=== PATIENT | male | born 1970 | race Caucasian/White ===

== ENCOUNTER 2022-12-27 08:48 | Outpatient (AMB) | payer OTHER, SELFPAY ==
[2022-12-27 08:58] VITALS: BP 124/70; PULSE 72; O2SAT 96; BMI 26.5
--- NOTE | 2022-12-27 08:58 | A.OFFPC_ITS ---
Vital Signs 12/27/22 08:58 Height 5 ft 8 in Weight 174 lb BMI 26.5 BP 124/70 Blood Pressure Location Lt brachial Position Sitting Pulse 72 Pulse Source Pulse Oximeter Pulse Oximetry (%) 96 Oxygen Delivery Method Room Air Intake Visit Reasons: Re establish care Allergies No Known Allergies Allergy (Verified 12/27/22 09:15) Medication List - Last Reconciled 12/27/22 by Julio Poon MD No Known Home Meds Tobacco use date assessed: 12/27/22 Dental Screening Dental Screen Date: 12/27/22 Did you have a dental visit in the last 12 months?: Yes Did you have a dental problem in the last 6 months where you did not have access to dental care?: No Was dental information given to patient?: Patient has dentist HPI Re establish care HPI Details Patient comes in today for his annual physical examination and to reestablish care - was last seen here in 2018 Patient states that he feels okay He denies any headaches or dizziness Denies any chest pains, no SOB No nausea/vomiting, no abdominal pain No change in bowel habits noted Denies any acute urinary symptoms States that he gets Rx for Metronidazole topical gel from his therapist rrt ([facility]) previously and would like to get this refilled today if possible He has never had a screening colonoscopy done in the past [facility] Medical History (Updated 12/27/22 @ 09:49 by Julio Poon MD) Overweight (BMI 25.0-29.9) Smoker Rosacea Alcohol abuse Anxiety Depression Surgical History (Updated 12/27/22 @ 09:39 by Julio Poon MD) Hx of local excision of skin lesion Family History Mother No problems noted. Father Cancer Brother No problems noted. Brother No problems noted. Sister No problems noted. Daughter No problems noted. Daughter No problems noted. Other Mental health disorder Substance use disorder Social History (Updated 12/27/22 @ 09:30 by Julio Poon MD) Housing: Other (mobile home) Patient Tobacco Use Status: Current everyday Tobacco user Tobacco use type: Cigarette Cigarette Packs Per Day: 1 Cigarettes Per Day: 20 e-Cigarette/Vaping Use: Never Used Second Hand Smoke Exposure: Yes Substance Use Type: Marijuana service: No Current occupational status: employed Current occupational exposures/hazards: No Cognitive needs: No Hearing needs: No Vision needs: Yes Questionnaire PHQ-9 Over the last 2 weeks, how often have you been bothered by any of the following problems? 1. Little interest or pleasure in doing things: more than half the days 2. Feeling down, depressed, or hopeless: nearly every day 3. Trouble falling or staying asleep, or sleeping too much: more than half the days 4. Feeling tired or having little energy: not at all 5. Poor appetite or overeating: not at all 6. Feeling bad about yourself - or that you are a failure or have let yourself or your family down: more than half the days 7. Trouble concentrating on things, such as reading the newspaper or watching television: not at all 8. Moving or speaking so slowly that other people could have noticed. Or the opposite - being so fidgety or restless that you have been moving around a lot more than usual: several days 9. Thoughts that you would be better off or of hurting yourself in some way: several days Total score: 11 Depression Screening Interpretation: Positive Depression Screening Follow-up: Existing condition and Declines treatment Depression Screening Done: Yes 73473 - PHQ-9 Billing: Yes Source: Developed by Drs. Rigo Villatoro, Sarita Bansal, Bubba Singh and colleagues, with an educational kurt from [employer]. Thrive Questionnaire Date Thrive assessed: 12/27/22 I am a: Patient What is your living situation today?: I have a steady place to live Within the past 12 months, did the food you bought not last and you didn't have the money to get more?: Never true Within the past 12 months, did you worry whether your food would run out before you got money to buy more?: Never true Do you have trouble paying for medicines?: No Do you have trouble getting transportation to medical appointments?: No Do you have trouble paying your heating and electricity bill?: No Do you have trouble taking care of your child, family member or friend?: No Do you have trouble with day-to-day activities such as bathing, preparing meals, shopping, managing finances, etc.?: No Are you currently unemployed and looking for a job?: No Are you interested in more education?: No Currently or been in a relationship where the following occur: no concerns reported AUDIT C Alcohol Use Questionnaire (AUDIT-C) 1. How often do you have a drink containing alcohol?: 4 or more times a week 2. How many drinks containing alcohol do you have on a typical day when you are drinking?: 5 or 6 3. How often do you have six or more drinks on one occasion?: Daily or almost daily Total Score: 10 Score Reviewed/Action Taken: Yes YAHIR-7 AMB Questionnaire YAHIR-7 Date YAHIR - 7 assessed: 12/27/22 Feeling nervous, anxious, or on edge: 1 = Several days Not being able to stop or control worryin = Nearly every day Worrying too much about different things: 3 = Nearly every day Trouble relaxin = Nearly every day Being so restless that it is hard to sit still: 0 = Not at all Becoming easily annoyed or irritable: 1 = Several days Feeling afraid as if something awful might happen: 3 = Nearly every day Total YAHIR-7 score (0-4 normal; 5-9 mild; 10-14 moderate; 15-21 severe): 14 Source: Developed by Drs. Rigo Villatoro, Sarita Bansal, Bubba Singh and colleagues, with an educational kurt from [employer]. Review of Systems Const Denies chills, Reports difficulty sleeping (feels like his brain won't shut down to let him sleep), Denies fatigue, Denies fever(s), Denies headache(s), Denies malaise and Denies weakness Eyes Denies blurry vision, Denies change in vision, Denies irritation and Denies itchy eyes ENT Denies dysphagia, Denies dizziness, Denies otalgia, Denies headache(s), Denies nasal congestion, Denies neck pain, Denies odynophagia and Denies sore throat Card Denies chest pain, Denies rapid heart rate, Denies irregular heart rhythm, Denies palpitations and Denies dyspnea Resp Denies chest congestion, Denies cough, Denies dyspnea and Denies wheezing GI Denies abdominal pain, Denies bloating, Denies constipation, Denies dysphagia, Denies heartburn, Denies diarrhea, Denies nausea, Denies odynophagia and Denies vomiting Denies hematuria, Denies difficulty urinating (but notes slightly weaker urinary stream than usual lately), Denies dysuria, Denies urinary frequency and Denies urinary urgency Musc Denies back pain, Reports arthralgias (on and off, involving multiple joints), Denies joint swelling, Denies muscle weakness and Denies neck pain Skin/Breast Denies change in pigmentation, Denies lesions, Denies rash and Denies unusual bruising Neuro Denies dizziness, Denies headache(s), Denies paresthesias and Denies weakness Psych Reports anxiety and Reports depression Endo Denies fatigue and Denies palpitations Kale/Lymph Denies easy bruising Aller/Immun Denies itchy eyes and Denies wheezing Physical exam (Primary Care) Vital Signs: Last Vital Signs Pulse 72 12/27/22 08:58 BP 124/70 12/27/22 08:58 Pulse Ox 96 12/27/22 08:58 Oxygen Delivery Method Room Air 12/27/22 08:58 BMI result Body Mass Index 26.5 Tobacco/Smoking Status: Tobacco use Status Tobacco use date assessed 12/27/22 12/27/22 09:07 Patient Tobacco Use Status Current everyday Tobacco 12/27/22 09:07 Tobacco use type Cigarette 12/27/22 09:07 e-Cigarette/Vaping Use Never Used 12/27/22 09:07 PHQ-9: PHQ-9 Score PHQ-9: Total score 11 12/27/22 09:07 Depression Screening Interpretation: Positive Depression Screening Follow-up: Existing condition and Declines treatment Thrive Assessment: Date of Thrive Assessment Date Thrive assessed 12/27/22 12/27/22 09:07 Currently or been in a relationship where the following occur: no concerns reported Const General: no acute distress, alert and awake Orientation/consciousness: patient oriented x3 HENMT Head: Yes normocephalic and Yes atraumatic Ears: external ears normal, TM's normal bilaterally and EAC's normal General nose exam: No nasal discharge present Face and sinus: Yes normal facial exam and Yes sinuses nontender Teeth and gingiva: dentition normal Throat: Yes posterior oropharynx normal and Yes tonsils normal (no TP congestion) Eyes Eyelids: Yes eyelids normal Conjunctivae: conjunctivae normal Pupils: Equal, round and reactive pupils present EOM: EOMs intact bilaterally Neck Neck: Yes no lymphadenopathy and Yes supple Thyroid: Thyroid normal Resp Auscultation: clear to auscultation bilaterally, no rales and no wheezes Cardio Rate: regular rate Rhythm: regular rhythm Heart sounds: no murmurs GI Palpation (GI): Soft to palpation, nontender and No hepatosplenomegaly present Auscultation: normal bowel sounds General: Yes no CVA tenderness Back/Spine/Pelvis Back: no CVA tenderness Thoracic/Lumbar Spine: thoracic and lumbar spine normal to inspection Skin Lesions: no lesions Rashes: no rashes Neuro General: patient oriented x3, moves all extremities, no focal motor deficits and CN's II-XI intact bilaterally Cranial nerves: Yes Equal, round and reactive pupils present Cognition (Neuro): normal cognition Gait exam (Neuro): Normal gait present Extrem General: Yes no clubbing, cyanosis or edema Assessment and Plan Assessment & Plan (1) Annual physical exam: Code(s): Z00.00 - Encounter for general adult medical examination without abnormal findings Plan: Check labs (2) Rosacea: Code(s): L71.9 - Rosacea, unspecified Plan: Continue Metronidazole 0.75% topical gel QD PRN - Rx refilled, per request Follow up with [facility] as scheduled (3) Alcohol abuse: Code(s): F10.10 - Alcohol abuse, uncomplicated Plan: Counseled on at least trying to cut back on his alcohol intake - it appears that patient has been drinking to help alleviate some of his symptoms of anxiety and depression over the years Will send him for some additional labs, including his LFTs, serum magnesium level, B1, B6 and B12 levels for further evaluation (4) Anxiety: Code(s): F41.9 - Anxiety disorder, unspecified Plan: Patient used to take Escitalopram in the past but declined offer to start him back on Rx at this time It appears that he has been using alcohol (drinking) as well as smoking marijuana to help control or alleviate some of his symptoms of anxiety and depression over the years (5) Depression: Code(s): F32.A - Depression, unspecified Qualifiers: Depression Type: major depressive disorder Major depression recurrence: recurrent Active/Remission status: currently active Major depression episode severity: unspecified Qualified Code(s): F33.9 - Major depressive disorder, recurrent, unspecified Plan: Patient used to take Escitalopram and Mirtazapine in the past but declined offer to start him back on Rx at this time He also declined offer to refer him to psychiatry Is advised that he can call for referral at any time if he changes his mind about this or about starting on medications (6) Smoker: Code(s): F17.200 - Nicotine dependence, unspecified, uncomplicated Plan: Counseled on smoking cessation, bith for cigarettes and marijuana (7) Overweight (BMI 25.0-29.9): Code(s): E66.3 - Overweight Plan: Reinforced diet/exercise as tolerated/lose weight (8) Colon cancer screening: Code(s): Z12.11 - Encounter for screening for malignant neoplasm of colon Plan: Will refer him to GI for screening colonoscopy - he has never had one done in the past Plan Follow up in 6 months Orders: Orders Lipid Panel Today E78.00 - Pure hypercholesterolemia, unspecified, Z00.00 - Encounter for general adult medical examination without abnormal findings TSH reflex Free T4 Today E78.00 - Pure hypercholesterolemia, unspecified, L71.9 - Rosacea, unspecified, Z00.00 - Encounter for general adult medical examination without abnormal findings Complete Blood Count Auto Diff Today F17.200 - Nicotine dependence, unspecified, uncomplicated, L71.9 - Rosacea, unspecified, Z00.00 - Encounter for general adult medical examination without abnormal findings Comprehensive [place]. Panel Fast Today F17.200 - Nicotine dependence, unspecified, uncomplicated, L71.9 - Rosacea, unspecified, Z00.00 - Encounter for general adult medical examination without abnormal findings UA CC w/rflx Micro + Cult Today R30.0 - Dysuria, Z00.00 - Encounter for general adult medical examination without abnormal findings Prostate Specific Antigen Scr Today Z00.00 - Encounter for general adult medical examination without abnormal findings Vitamin D 25-OH Total Today E55.9 - Vitamin D deficiency, unspecified, Z00.00 - Encounter for general adult medical examination without abnormal findings Vitamin B12 and Folate Today E53.8 - Deficiency of other specified B group vitamins, F10.20 - Alcohol dependence, uncomplicated, Z00.00 - Encounter for general adult medical examination without abnormal findings Hemoglobin A1c Today R73.9 - Hyperglycemia, unspecified, Z00.00 - Encounter for general adult medical examination without abnormal findings Magnesium Today E83.42 - Hypomagnesemia, F10.20 - Alcohol dependence, uncomplicated Vitamin B6 Today F10.20 - Alcohol dependence, uncomplicated Vitamin B1 Today F10.20 - Alcohol dependence, uncomplicated Referrals Gastroenterology Referral Z12.11 - Encounter for screening for malignant neoplasm of colon Medications: New metronidazole 0.75% 1 appl topical DAILY 45 grams 2RF L71.9 - Rosacea, unspecified Coding Level of Care Code New Pt Prev Care 40-64y(96506) Diagnoses Annual physical exam Z00.00 Rosacea L71.9 Alcohol abuse F10.10 Anxiety F41.9 Episode of recurrent major depressive disorder, unspecified depression episode severity F33.9 Depression Type: major depressive disorder Major depression recurrence: recurrent Active/Remission status: currently active Major depression episode severity: unspecified Smoker F17.200 Overweight (BMI 25.0-29.9) E66.3 Colon cancer screening Z12.11
== END 2022-12-27 09:38 | disposition home or self-care (01) ==
PROVIDERS: PCP Internal Medicine; Visit Provider Internal Medicine
DX: Z00.00 Encounter for general adult medical examination without abnormal findings (principal); L71.9 Rosacea, unspecified; F10.10 Alcohol abuse, uncomplicated; F33.9 Major depressive disorder, recurrent, unspecified; F41.9 Anxiety disorder, unspecified; F17.210 Nicotine dependence, cigarettes, uncomplicated; E66.3 Overweight; Z12.11 Encounter for screening for malignant neoplasm of colon
CPT/HCPCS: 99386

== ENCOUNTER 2022-12-27 09:46 | Outpatient (REF) | payer OTHER, SELFPAY ==
[2022-12-27 10:13] LABS: MANUAL DIFF FLAG NO
[2022-12-27 10:52] LABS: Basophils Percent Auto 0.4 % (0-2); Eosinophils Absolute Auto 0.1 X10*3/uL (0.0-0.4); Eosinophils Percent Auto 1.2 % (0-4); Hematocrit 44.3 % (42.0-52.0); Hemoglobin 15.4 g/dl (14.0-18.0); Imm Gran Abs Auto 0.04 X10*3/uL (0.00-0.03); Imm Gran Pct Auto 0.4 % (0.0-0.4); Lymphocytes Absolute Auto 2.6 X10*3/uL (1.2-4.9); Mean Corpuscular HGB Conc 34.8 g/dl (31.0-36.0); Mean Corpuscular Hemoglobin 34.8 pg (27.0-33.0); Mean Corpuscular Volume 100.2 fL (80.0-98.0); Mean Platelet Volume 9.8 fL (9.4-12.4); Monocytes Absolute Auto 0.6 X10*3/uL (0.1-1.2); Monocytes Percent Auto 5.9 % (2-11); Neutrophils Absolute Auto 6.7 x10*3/uL (2.0-8.3); Neutrophils Percent Auto 66.1 % (45-73); Platelet Count 285 X10*3/uL (160-400); Red Blood Count 4.42 X10*6/uL (4.60-5.80); White Blood Count 10.1 X10*3/uL (4.8-10.8)
[2022-12-27 10:57] LABS: Estimated Average Glucose 103 mg/dL; Hemoglobin A1c % 5.2 % (<6.0)
[2022-12-27 11:29] LABS: Alanine Aminotransferase 28 U/L (0-40); Albumin Level 4.4 g/dL (3.5-5.0); Alkaline Phosphatase 104 U/L (39-117); Anion Gap 14 (12-20); Aspartate Amino Transferase 24 U/L (5-37); Bilirubin Total 0.3 mg/dL (0.0-1.0); Blood Urea Nitrogen 9 mg/dL (9-16); Calcium 9.6 mg/dL (8.4-10.2); Carbon Dioxide 27 mmol/L (22-29); Chloride 106 mmol/L (96-108); Cholesterol 170 mg/dL (<200); Estimated Glomerular Filt Rate > 60; Glucose Fasting 84 mg/dL (60-99); HDL Cholesterol 63 mg/dL (>40); LDL Cholesterol Calculated 86 mg/dL (<100); Magnesium 2.3 mg/dL (1.6-2.6); Potassium 3.9 mmol/L (3.3-5.1); Sodium 143 mmol/L (135-145); Total Protein 7.2 g/dL (6.5-8.0); Triglycerides 107 mg/dL (<150)
[2022-12-27 11:49] LABS: TSH reflex Free T4 1.08 uIU/mL (0.32-4.0); Vitamin D 25-OH Total 30.4 ng/mL (>30)
[2022-12-27 11:51] LABS: Folate 13.2 ng/mL (> or = 4.0); Prostate Specific Antigen Scr 1.57 ng/mL (<0.05-4.0); Vitamin B12 759 pg/mL (200-900)
[2022-12-27 12:09] LABS: Appearance Urine Clear; Color Urine Yellow; Glucose Urine UA Negative (Negative); Leukocyte Esterase Urine Negative (Negative); Nitrite Urine Negative (Negative); Urine Blood Negative (Negative); Urine Ketones Negative (Negative); Urine Protein Negative (Neg-Trace)
[2023-01-02 12:53] LABS: Vitamin B1 28 nmol/L (8-30)
[2023-01-06 15:48] LABS: Vitamin B6 35.6 ng/mL (2.1-21.7)
== END 2022-12-27 09:47 | disposition home or self-care (01) ==
LOC: HO.LAB 09:46
PROVIDERS: PCP Internal Medicine; Visit Provider Internal Medicine
DX: Z00.00 Encounter for general adult medical examination without abnormal findings (principal); Z12.5 Encounter for screening for malignant neoplasm of prostate; E78.00 Pure hypercholesterolemia, unspecified; F17.200 Nicotine dependence, unspecified, uncomplicated; L71.9 Rosacea, unspecified; E53.8 Deficiency of other specified B group vitamins; F10.20 Alcohol dependence, uncomplicated; R73.9 Hyperglycemia, unspecified; R30.0 Dysuria; E55.9 Vitamin D deficiency, unspecified
CPT/HCPCS: 36415; 80053; 80061; 81003; 82306; 82607; 82746; 83036; 83735; 84153; 84207; 84425; 84443; 85025

== ENCOUNTER 2023-01-31 13:01 | Outpatient (AMB) | payer OTHER, SELFPAY ==
[2023-01-31 13:06] VITALS: BP 135/73; PULSE 75
--- NOTE | 2023-01-31 13:06 | MHC.OFFVIS ---
Intake Vital Signs 01/31/23 13:06 Weight 178 lb 2.136 oz BP 135/73 Blood Pressure Location Lt brachial Position Sitting Pulse 75 Intake Visit Reasons: Colonoscopy screening Intake Note: Patient referred by Dr. Mancilla for colonoscopy screening. Patient denies constipation or diarrhea. 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 He has no known family history of GI cancers Bowels normal Appetite is good No cardiac or respiratory He does smoke, drinks alcohol, works full-time No nausea, vomiting, hematemesis, hematochezia fever chills PFSH Medical History Overweight (BMI 25.0-29.9) Smoker Rosacea Alcohol abuse Anxiety Depression Surgical History Hx of local excision of skin lesion Family History Mother No problems noted. Father Cancer Brother No problems noted. Brother No problems noted. Sister No problems noted. Daughter No problems noted. Daughter No problems noted. Other Mental health disorder Substance use disorder Social History Housing: Other (mobile home) Patient Tobacco Use Status: Current everyday Tobacco user Tobacco use type: Cigarette Cigarette Packs Per Day: 1 Cigarettes Per Day: 20 e-Cigarette/Vaping Use: Never Used Second Hand Smoke Exposure: Yes Substance Use Type: Marijuana service: No Current occupational status: employed Current occupational exposures/hazards: No Cognitive needs: No Hearing needs: No Vision needs: Yes Review of Systems Const All systems reviewed & are unremarkable except as noted in HPI and below Card Denies chest pain and Denies dyspnea Resp Denies dyspnea GI Denies abdominal pain, Denies change in bowel habits, Denies heartburn, Denies diarrhea and Denies nausea Physical Exam Vital Signs: Last Vital Signs Pulse 75 01/31/23 13:06 BP 135/73 01/31/23 13:06 Const General: cooperative, healthy appearing, comfortable and no acute distress Orientation/consciousness: patient oriented x3 Limitations: no limitations Eyes Conjunctivae: conjunctival abnormal (Conjunctiva injected bilaterally no drainage) Resp Effort & Inspection: normal respiratory effort and able to speak in complete sentences Auscultation: clear to auscultation bilaterally, no crackles and no rales Cardio Rate: regular rate Rhythm: regular rhythm Heart sounds: S1 normal heart sound present and S2 normal heart sound present GI Palpation (GI): Soft to palpation and nontender Auscultation: normal bowel sounds Skin General skin exam: no rashes or lesions noted Neuro General: patient oriented x3 Extrem General: Yes full ROM Psych Appearance: grossly normal Mental Status: mental status grossly normal Speech and movement: Normal speech and movement present and Clear speech present Affect: normal affect Attitude: cooperative Thought process: Normal thought process present Thought content: Normal thought content present Assessment & Plan Assessment & Plan (1) Colon cancer screening: Comment: No GI complaints, no known family history colon cancer Discussed procedure, rare risks, need for escorted due to anesthesia Code(s): Z12.11 - Encounter for screening for malignant neoplasm of colon Plan: index screening colonoscopy Plan index screen Orders: Orders Colonoscopy - GI Use Only 01/31/23 Z12.11 - Encounter for screening for malignant neoplasm of colon Medications: New bisacodyl (Dulcolax (bisacodyl)) Day before procedure, prep day Take 4 tablets by mouth upon awakening followed by large glass of water 20 mg (4 x 5 mg) PO ONCE 1 day 4 tabs 0RF colonoscopy prep Z12.11 - Encounter for screening for malignant neoplasm of colon polyethylene glycol 3350 (Miralax) Take as directed by mouth the day before your procedure. 238 grams PO ONCE 1 day PRN 238 grams 0RF laxative effect Patient Instructions: index screening colonoscopy MG prep, reviewed literature given Will be escorted due to anesthesia Rare risks reviewed Encouraged to call questions or concerns Coding Level of Care Code New Pt Level 3 (41689) Diagnoses Colon cancer screening Z12.11 Time Spent (min) 30
== END 2023-01-31 13:37 | disposition home or self-care (01) ==
PROVIDERS: PCP Internal Medicine; Visit Provider Physician Assistant
DX: Z12.11 Encounter for screening for malignant neoplasm of colon (principal); Z01.818 Encounter for other preprocedural examination
CPT/HCPCS: 99203

== ENCOUNTER → 2023-01-31 13:01 | Outpatient (BNVA) | payer OTHER, SELFPAY | PROVIDERS: PCP Internal Medicine; Visit Provider Physician Assistant ==

== ENCOUNTER 2023-05-21 09:45 | Day surgery (SDC) | payer OTHER, SELFPAY ==
--- NOTE | 2023-05-20 09:23 | P.CONAN_ITS ---
Documented by User: Maria R Garcia NP 05/20/23 09:23 HPI - Anesthesia Eval Consult details Narrative: 53yo M for Colonoscopy PMFSH Active Problems Active Problems: All Active Problems (Updated 01/31/23 @ 13:51 by Karma Munguia PA-C) Colon cancer screening (Acute) Overweight (BMI 25.0-29.9) (Acute) Smoker (Acute) Annual physical exam (Acute) Rosacea (Acute) Alcohol abuse (Acute) Anxiety (Acute) Depression (Acute) Past Medical History Medical History Overweight (BMI 25.0-29.9) Smoker Rosacea Alcohol abuse Anxiety Depression Family History Family History Mother No problems noted. Father Cancer Brother No problems noted. Brother No problems noted. Sister No problems noted. Daughter No problems noted. Daughter No problems noted. Other Mental health disorder Substance use disorder Surgical History Surgical History Hx of local excision of skin lesion Social History Social History Housing: Other (mobile home) Patient Tobacco Use Status: Current everyday Tobacco user Tobacco use type: Cigarette Cigarette Packs Per Day: 1 Cigarettes Per Day: 20 Smoked in Last 30 Days: Yes e-Cigarette/Vaping Use: Never Used Patient Interested in Nicotine Replacement: No Second Hand Smoke Exposure: Yes Substance Use Type: Marijuana Substance Use Frequency: Weekly Are you DNR?: No Advance Directives: No Advance Directives Information Provided: Yes Nutrition Risks: No Nutritional Risk service: No Current occupational status: employed Current occupational exposures/hazards: No Cognitive needs: No Hearing needs: No Vision needs: Yes Meds Allergies Allergy/AdvReac Type Severity Reaction Status Date / Time No Known Allergies Allergy Verified 05/21/23 10:22 Assessment and Plan Assessment Anesthesia Assessment: Chart Reviewed Documented by User: Carol Lilly MD 05/21/23 10:31 [facility] Past Medical History Medical History Overweight (BMI 25.0-29.9) Smoker Rosacea Alcohol abuse Anxiety Depression Family History Family History Mother No problems noted. Father Cancer Brother No problems noted. Brother No problems noted. Sister No problems noted. Daughter No problems noted. Daughter No problems noted. Other Mental health disorder Substance use disorder Surgical History Surgical History Hx of local excision of skin lesion History of Problems with Anesthesia: No Social History Social History Housing: Other (mobile home) Patient Tobacco Use Status: Current everyday Tobacco user Tobacco use type: Cigarette Cigarette Packs Per Day: 1 Cigarettes Per Day: 20 Smoked in Last 30 Days: Yes e-Cigarette/Vaping Use: Never Used Patient Interested in Nicotine Replacement: No Second Hand Smoke Exposure: Yes Substance Use Type: Marijuana Substance Use Frequency: Weekly Are you DNR?: No Advance Directives: No Advance Directives Information Provided: Yes Nutrition Risks: No Nutritional Risk service: No Current occupational status: employed Current occupational exposures/hazards: No Cognitive needs: No Hearing needs: No Vision needs: Yes Meds Allergies Allergy/AdvReac Type Severity Reaction Status Date / Time No Known Allergies Allergy Verified 05/21/23 10:22 Exam Airway Mallampati Class: III TM Dist: >3cm Neck ROM: Full Loose/Missing/Broken Teeth: No Heart: RRR Lungs: CTA Assessment and Plan Assessment Anesthesia Assessment: Anesthesia Plan Discussed Final Anesthetic Review History of Problems with Anesthesia: No NPO: Yes ASA Class: II and III Final Preanesthetic Review: Meds/Allgs Chart Reviewed, Consent Obtained/Reviewed and Anes Risks/Benef Reviewed Patient Risk: Intermediate Procedure Risk: Low Anesthetic Plan Anesthetic Plan: MAC: Disposition: Standard PACU
[2023-05-21 10:03] VITALS: BMI 23.9
[2023-05-21] MEDS: Lactated Ringers 1,000 ML 100 ML IVCONT (10:09)
[2023-05-21 10:21] VITALS: BP 122/83; PULSE 89; RESP 18; TEMP 36.7; O2SAT 97
--- NOTE | 2023-05-21 10:45 | MHC.SHP ---
Pre-Procedural Eval Section A - 24 Hr Update-Section A only Date of Service: 05/21/23 Section B - Complete if H&P > 30 days Chief Complaint: Encounter for screening for malignant neoplasm of Details of Present Illness: Overweight (BMI 25.0-29.9) Smoker Rosacea Alcohol abuse Anxiety Depression Surgical History Hx of local excision of skin lesion Allergies: Allergies Allergy/AdvReac Type Severity Reaction Status Date / Time No Known Allergies Allergy Verified 05/21/23 10:22 Review of Systems Review of Systems Comment: Ten point ROS negative Exam Exam Comment: Gen appear: No acute distress HEENT: no icterus Chest: No overt resp distress Abd: soft, nontender, nondistended Psych: Stable affect, answering questions appropriately Neuro: A/Ox3 noted to move all extremities spontaneously Ext: no peripheral edema Plan Diagnosis/Plan: Unchanged I have reviewed the history and physical and performed a pertinent physical examination on my patient. No changes have occurred unless specified. Time Spent With Patient Time: Total time managing care of this patient today ____ minutes.
--- NOTE | 2023-05-21 10:46 | P.OP_ITS ---
Operative Note Operative Note Date of Service: 05/21/23 Narrative: Procedure: Colonoscopy Indication: Screening Endoscopist: Celia Medeiros MD Anesthesia Provider: Dr Carol Lilly Anesthesia type: MAC Instrument: Olympus [id number]-H190L Consent: Indication, risks vs benefits, and alternatives were discussed with the patient who gave written informed consent to proceed. EKG, pulse, pulse oximetry and blood pressure were monitored throughout the procedure. Please see anesthesia flowsheet. Procedure: The patient was brought to the procedure room and placed in the left lateral decubitus position. IV medications were administered by the anesthesia provider in attendance. A digital rectal exam was performed which was normal. The colonoscope was then inserted through the anus and advanced through the colon to the cecum at 75 cm,and terminal ileum. Appendiceal orifice and ileocecal valve were identified. Mucosa was carefully examined under high definition white light as the instrument was slowly withdrawn in a retrograde panoramic fashion. Retroflexion was performed in rectum. The procedure was not difficult. There were no immediate obvious complications. The quality of the prep was BBPS: 2+3+2 = adequate Withdrawal time 13 minutes. Limitations: No limitations. Findings: Mucosa: Normal to cecum and terminal ileum. Protruding lesions: * 1 sessile polyp of size 2 mm in cecum. Cold snare polypectomy was performed. The polyp was completely removed and retrieved. * 1 sessile polyp of size 5 mm in descending colon. Cold snare polypectomy was performed. The polyp was completely removed and retrieved. * 1 sessile polyp of size 2 mm in rectum. Cold snare polypectomy was performed. The polyp was completely removed and retrieved. * Medium internal hemorrhoids without stigmata of recent bleeding. Impression: 1. Normal colon and terminal ileum mucosa 2. Total of 3 polyps removed 3. Internal hemorrhoids Recommendations: - Follow path results. - Repeat colonoscopy in 5 years if all polyps are adenomas (since 2/3 polyps are diminutive), otherwise 7 years.
[2023-05-21 11:20] VITALS: BP 107/66; PULSE 64; RESP 18; TEMP 36.3; O2SAT 99
[2023-05-21 11:35] VITALS: BP 129/63; PULSE 58; RESP 16; TEMP 36.4; O2SAT 99
== END 2023-05-21 13:03 | disposition home or self-care (01) ==
PROVIDERS: PCP Internal Medicine; Visit Provider Internal Medicine
PROC: 0DJD8ZZ Inspection of Lower Intestinal Tract, Via Natural or Artificial Opening Endoscopic (ICD-10-PCS; CPT 45378; principal; 2023-05-21 11:10)
DX: Z12.11 Encounter for screening for malignant neoplasm of colon (principal); D12.4 Benign neoplasm of descending colon; K63.5 Polyp of colon; K62.1 Rectal polyp; K64.8 Other hemorrhoids
CPT/HCPCS: 45385; 88305; J2371; J2704

== ENCOUNTER → 2023-05-21 09:45 | Outpatient (BNV) | payer OTHER, SELFPAY | PROVIDERS: PCP Internal Medicine; Visit Provider Internal Medicine | DX: Z12.11 Encounter for screening for malignant neoplasm of colon (principal); D12.3 Benign neoplasm of transverse colon; K64.8 Other hemorrhoids | CPT/HCPCS: 45385 ==

== ENCOUNTER 2023-06-11 13:02 | Outpatient (AMB) | payer OTHER, SELFPAY ==
--- NOTE | 2023-06-11 13:14 | A.OFFVIS_ITS ---
Vital Signs 06/11/23 13:16 Height 6 ft Weight 163 lb 2.273 oz BMI 22.1 BP 116/68 Blood Pressure Location Lt brachial Position Sitting Pulse 89 Intake Visit Reasons: S/P Colon Intake Note: Mikhail presents in the office as a follow up colonoscopy. CC: No concerns at this time just here for results. Machine Setter Required: No Allergies No Known Allergies Allergy (Verified 06/11/23 13:15) HPI Comments Details: 53-year-old male follows up after recent index screening colonoscopy he has no complaints. Tolerated procedure well Reviewed procedure report, pathology and recommendation Opportunity for questions answered to his satisfaction Appetite is good bowels are normal No nausea, vomiting fever chills PFSH Medical History Overweight (BMI 25.0-29.9) Smoker Rosacea Alcohol abuse Anxiety Depression Surgical History Hx of colonoscopy Hx of local excision of skin lesion Family History Mother No problems noted. Father Cancer Brother No problems noted. Brother No problems noted. Sister No problems noted. Daughter No problems noted. Daughter No problems noted. Other Mental health disorder Substance use disorder Social History Housing: Other (mobile home) Patient Tobacco Use Status: Current everyday Tobacco user Tobacco use type: Cigarette Cigarette Packs Per Day: 1 Cigarettes Per Day: 20 e-Cigarette/Vaping Use: Never Used Second Hand Smoke Exposure: Yes Substance Use Type: Marijuana service: No Current occupational status: employed Current occupational exposures/hazards: No Cognitive needs: No Hearing needs: No Vision needs: Yes Review of Systems Const All systems reviewed & are unremarkable except as noted in HPI and below Physical Exam Vital Signs: Last Vital Signs Pulse 89 06/11/23 13:16 BP 116/68 06/11/23 13:16 BMI result Body Mass Index 22.1 Const General: cooperative, healthy appearing and comfortable Nutritional Appearance: thin Limitations: no limitations Resp Effort & Inspection: normal respiratory effort and able to speak in complete sentences Psych Appearance: grossly normal Mental Status: mental status grossly normal Speech and movement: Normal speech and movement present and Clear speech present Affect: normal affect Attitude: cooperative Thought process: Normal thought process present Thought content: Normal thought content present Insight: Good insight present (Psych) Judgement: Good judgement present (Psych) Results Reviewed Results Reviewed: [address] [address] Operative Note Signed Patient: Mikhail Mcclellan MR#: [id number] : 1970 Acct:[id number] Age/Sex: 53 / M Loc: [facility].SSS Attending Dr: Celia Medeiros MD cc: Julio Poon MD; Karma Munguia PA-C; Celia Medeiros MD~ Operative Note Operative Note Date of Service: 05/21/23 Narrative: Procedure: Colonoscopy Indication: Screening Endoscopist: Celia Medeiros MD Anesthesia Provider: Dr Carol Lilly Anesthesia type: MAC Instrument: Olympus [id number]-H190L Consent: Indication, risks vs benefits, and alternatives were discussed with the patient who gave written informed consent to proceed. EKG, pulse, pulse oximetry and blood pressure were monitored throughout the procedure. Please see anesthesia flowsheet. Procedure: The patient was brought to the procedure room and placed in the left lateral decubitus position. IV medications were administered by the anesthesia provider in attendance. A digital rectal exam was performed which was normal. The colonoscope was then inserted through the anus and advanced through the colon to the cecum at 75 cm,and terminal ileum. Appendiceal orifice and ileocecal valve were identified. Mucosa was carefully examined under high definition white light as the instrument was slowly withdrawn in a retrograde panoramic fashion. Retroflexion was performed in rectum. The procedure was not difficult. There were no immediate obvious complications. The quality of the prep was BBPS: 2+3+2 = adequate Withdrawal time 13 minutes. Limitations: No limitations. Findings: Mucosa: Normal to cecum and terminal ileum. Protruding lesions: * 1 sessile polyp of size 2 mm in cecum. Cold snare polypectomy was performed. The polyp was completely removed and retrieved. * 1 sessile polyp of size 5 mm in descending colon. Cold snare polypectomy was performed. The polyp was completely removed and retrieved. * 1 sessile polyp of size 2 mm in rectum. Cold snare polypectomy was performed. The polyp was completely removed and retrieved. * Medium internal hemorrhoids without stigmata of recent bleeding. Impression: 1. Normal colon and terminal ileum mucosa 2. Total of 3 polyps removed 3. Internal hemorrhoids Recommendations: - Follow path results. - Repeat colonoscopy in 5 years if all polyps are adenomas (since 2/3 polyps are diminutive), otherwise 7 years. : 1970 Submitted by: Celia Medeiros MD Copies to: Julio Poon MD MR #: [id number] Status: [facility] Collected: 05/21/23 Location: [facility] Received: 05/21/23 Diagnosis A. Cecum, polypectomy: Colonic mucosa with prominent lymphoid aggregate. B. Colon, descending, polypectomy: Tubular adenoma; negative for high-grade dysplasia or carcinoma. C. Rectum, polypectomy: Hyperplastic mucosal polyp. Clinical History Pre-Op Dx: Screening Post-Op Dx: Colon polyps, hemorrhoids Microscopic Description A-C. Microscopic sections reviewed. Material Received A. Polyp cecum B. Polyp descending colon C. Polyp rectum Gross Description Received in 3 parts. Part A: Received in formalin labeled ?polyp cecum? are 2 thin and delicate gamez rectangular fragments of mucosa each measuring 0.5 cm, submitted in toto in a cassette labeled A. Part B: Received in formalin labeled ?polyp descending colon? is a 0.9 x 0.4 x 0.3 cm gamez-pink papular tissue fragment, submitted in toto in a cassette labeled B. Part C: Received in formalin labeled ?polyp rectum? is a 0.35 cm gamez-pink papular tissue fragment, submitted in toto in a cassette labeled C. CEDS Copies To Julio Poon MD [address] [place] [id number] Patient: Mikhail Mcclellan Age/Sex: 53/M MR#: [id number] Page 1 of 2 Assessment & Plan Assessment & Plan (1) Tubular adenoma of colon: Comment: 1 tubular adenoma Code(s): D12.6 - Benign neoplasm of colon, unspecified Category: Medical Plan: Repeat asymptomatic colonoscopy 7 years (2) Hemorrhoids: Comment: Non issue Code(s): K64.9 - Unspecified hemorrhoids Category: Medical Plan: Maintain high-fiber avoid straining Plan Repeat asymptomatic colonoscopy 7 years Patient Instructions: Recall colonoscopy 7 years for 1 adenoma Maintain high-fiber diet Avoid straining with hemorrhoid Coding Level of Care Code Est Pt Level 3 (27764) Diagnoses Tubular adenoma of colon D12.6 Hemorrhoids K64.9 Time Spent (min) 20
[2023-06-11 13:16] VITALS: BP 116/68; PULSE 89; BMI 22.1
== END 2023-06-11 14:48 | disposition home or self-care (01) ==
PROVIDERS: PCP Internal Medicine; Visit Provider Physician Assistant
DX: D12.6 Benign neoplasm of colon, unspecified (principal); K64.9 Unspecified hemorrhoids
CPT/HCPCS: 99213

== ENCOUNTER → 2023-06-11 13:02 | Outpatient (BNVA) | payer OTHER, SELFPAY | PROVIDERS: PCP Internal Medicine; Visit Provider Physician Assistant ==

== ENCOUNTER 2023-07-09 09:16 | Outpatient (AMB) | payer OTHER, SELFPAY ==
[2023-07-09 09:18] VITALS: BP 112/64; PULSE 80; O2SAT 96; BMI 21.8
--- NOTE | 2023-07-09 09:18 | A.OFFPC_ITS ---
Vital Signs 07/09/23 09:18 Height 6 ft Weight 161 lb BMI 21.8 BP 112/64 Blood Pressure Location Lt brachial Position Sitting Pulse 80 Pulse Source Pulse Oximeter Pulse Oximetry (%) 96 Oxygen Delivery Method Room Air Intake Visit Reasons: 6 month f/u Intake Note: Patient is here to follow up on 6 month Instructional Facilitator Required: No Allergies No Known Allergies Allergy (Verified 07/09/23 09:46) Medication List - Last Reconciled 07/09/23 by Julio Poon MD metronidazole 0.75% 1 appl topical DAILY Tobacco use date assessed: 07/09/23 Dental Screening Dental Screen Date: 07/09/23 Did you have a dental visit in the last 12 months?: Yes Did you have a dental problem in the last 6 months where you did not have access to dental care?: No Was dental information given to patient?: Patient has dentist HPI 6 month f/u HPI Details Patient comes in today for his follow up visit States that he has been going through a rough time for the past few months - has been feeling more depressed States that he has lost a lot of weight lately and thinks that this is due to his depression and the fact that he has hardly been eating anything Would like to know if there is anything he can take that does not preclude him from drinking alcohol Admits that he continues to drink beer daily - drinks a few bottles everyday but states that he does not drink any hard liquor Has had a whitish growth/coating again on his tongue lately and recalls getting some Rx for this many years ago that he swishes around in his mouth for a while before swallowing it - would like to get this Rx again Adds that he had a colonoscopy done a few weeks ago and he came out clean except for a tubular adenoma - was advised that his next colonoscopy would be in 5 to 7 years He denies any headaches or dizziness Denies any chest pains, no SOB No nausea/vomiting, no abdominal pain No change in bowel habits noted PFSH Medical History Overweight (BMI 25.0-29.9) Smoker Rosacea Alcohol abuse Anxiety Depression Surgical History Hx of colonoscopy Hx of local excision of skin lesion Family History Mother No problems noted. Father Cancer Brother No problems noted. Brother No problems noted. Sister No problems noted. Daughter No problems noted. Daughter No problems noted. Other Mental health disorder Substance use disorder Social History Housing: Other (mobile home) Patient Tobacco Use Status: Current everyday Tobacco user Tobacco use type: Cigarette Cigarette Packs Per Day: 1 Cigarettes Per Day: 20 e-Cigarette/Vaping Use: Never Used Second Hand Smoke Exposure: Yes Substance Use Type: Marijuana service: No Current occupational status: employed Current occupational exposures/hazards: No Cognitive needs: No Hearing needs: No Vision needs: Yes Questionnaire PHQ-9 Over the last 2 weeks, how often have you been bothered by any of the following problems? 1. Little interest or pleasure in doing things: several days 2. Feeling down, depressed, or hopeless: several days 3. Trouble falling or staying asleep, or sleeping too much: nearly every day 4. Feeling tired or having little energy: nearly every day 5. Poor appetite or overeating: nearly every day 6. Feeling bad about yourself - or that you are a failure or have let yourself or your family down: several days 7. Trouble concentrating on things, such as reading the newspaper or watching television: not at all 8. Moving or speaking so slowly that other people could have noticed. Or the opposite - being so fidgety or restless that you have been moving around a lot more than usual: not at all 9. Thoughts that you would be better off or of hurting yourself in some way: not at all Total score: 12 Depression Screening Interpretation: Positive Depression Screening Follow-up: Existing condition and New Medication prescribed Depression Screening Done: Yes 27174 - PHQ-9 Billing: Yes Source: Developed by Drs. Rigo Villatoro, Sarita Bansal, Bubba Singh and colleagues, with an educational kurt from [employer]. Thrive Questionnaire Date Thrive assessed: 07/09/23 I am a: Patient What is your living situation today?: I have a steady place to live Within the past 12 months, did the food you bought not last and you didn't have the money to get more?: Never true Within the past 12 months, did you worry whether your food would run out before you got money to buy more?: Never true Do you have trouble paying for medicines?: No Do you have trouble getting transportation to medical appointments?: No Do you have trouble paying your heating and electricity bill?: No Do you have trouble taking care of your child, family member or friend?: No Do you have trouble with day-to-day activities such as bathing, preparing meals, shopping, managing finances, etc.?: No Are you currently unemployed and looking for a job?: No Are you interested in more education?: No Please select the resources that you would like help with: None Currently or been in a relationship where the following occur: no concerns reported THRIVE Score: 0 AUDIT C Alcohol Use Questionnaire (AUDIT-C) 1. How often do you have a drink containing alcohol?: 4 or more times a week 2. How many drinks containing alcohol do you have on a typical day when you are drinking?: 5 or 6 3. How often do you have six or more drinks on one occasion?: Daily or almost daily Total Score: 10 Score Reviewed/Action Taken: Yes YAHIR-7 AMB Questionnaire YAHIR-7 Date YAHIR - 7 assessed: 07/09/23 Feeling nervous, anxious, or on edge: 1 = Several days Not being able to stop or control worryin = Nearly every day Worrying too much about different things: 3 = Nearly every day Trouble relaxin = Several days Being so restless that it is hard to sit still: 0 = Not at all Becoming easily annoyed or irritable: 3 = Nearly every day Feeling afraid as if something awful might happen: 1 = Several days Total YAHIR-7 score (0-4 normal; 5-9 mild; 10-14 moderate; 15-21 severe): 12 Source: Developed by Drs. Rigo Villatoro, Sarita Bansal, Bubba Singh and colleagues, with an educational kurt from [employer]. YAHIR-7 Assessment Billing YAHIR-7 Assessment Tool: YAHIR-7 Assessment 28690 Review of Systems Const Denies chills, Reports difficulty sleeping (feels like his brain won't shut down to let him sleep), Denies fatigue, Denies fever(s), Denies headache(s) and Reports weight loss ENT Denies dysphagia, Denies dizziness, Denies otalgia, Denies headache(s), Denies neck pain, Denies odynophagia and Denies sore throat Card Denies chest pain, Denies rapid heart rate, Denies irregular heart rhythm, Denies palpitations and Denies dyspnea Resp Denies chest congestion, Denies cough, Denies dyspnea and Denies wheezing GI Denies abdominal pain, Denies constipation, Denies dysphagia, Denies diarrhea, Denies nausea, Denies odynophagia and Denies vomiting Denies hematuria, Denies difficulty urinating (but notes slightly weaker urinary stream than usual lately), Denies dysuria and Denies urinary frequency Musc Denies back pain, Reports arthralgias (on and off, involving multiple joints) and Denies neck pain Skin/Breast Denies rash Neuro Denies dizziness, Denies headache(s) and Denies paresthesias Psych Reports anxiety and Reports depression Endo Denies fatigue and Denies palpitations Kale/Lymph Denies easy bruising Aller/Immun Denies wheezing Physical exam (Primary Care) Vital Signs: Last Vital Signs Pulse 80 07/09/23 09:18 BP 112/64 07/09/23 09:18 Pulse Ox 96 07/09/23 09:18 Oxygen Delivery Method Room Air 07/09/23 09:18 BMI result Body Mass Index 21.8 Tobacco/Smoking Status: Tobacco use Status Tobacco use date assessed 07/09/23 07/09/23 09:27 Patient Tobacco Use Status Current everyday Tobacco 07/09/23 09:27 Tobacco use type Cigarette 07/09/23 09:27 e-Cigarette/Vaping Use Never Used 07/09/23 09:27 PHQ-9: PHQ-9 Score PHQ-9: Total score 12 07/09/23 10:00 Depression Screening Interpretation: Positive Depression Screening Follow-up: Existing condition and New Medication prescribed Thrive Assessment: Date of Thrive Assessment Date Thrive assessed 07/09/23 07/09/23 09:27 Currently or been in a relationship where the following occur: no concerns reported Const General: no acute distress and alert HENMT Ears: TM's normal bilaterally and EAC's normal Throat: Yes posterior oropharynx normal and Yes tonsils normal (no TP congestion) Neck Neck: Yes no lymphadenopathy and Yes supple Thyroid: Thyroid normal Resp Auscultation: clear to auscultation bilaterally, no rales and no wheezes Cardio Rate: regular rate Rhythm: regular rhythm Heart sounds: no murmurs GI Palpation (GI): Soft to palpation and nontender Auscultation: normal bowel sounds General: Yes no CVA tenderness Back/Spine/Pelvis Back: no CVA tenderness Skin Rashes: no rashes Extrem General: Yes no clubbing, cyanosis or edema Results Reviewed Results Reviewed: Laboratory Tests 12/27/22 12/27/22 10:07 10:08 WBC 10.1 Hgb 15.4 Hct 44.3 Plt Count 285 Sodium 143 Potassium 3.9 Creatinine 0.77 Estimated GFR > 60 Fasting Glucose 84 Hemoglobin A1c % 5.2 Calcium 9.6 Magnesium 2.3 AST 24 ALT 28 Triglycerides 107 Cholesterol 170 LDL Cholesterol, Calc 86 HDL Cholesterol 63 Vitamin B1 28 Vitamin B6 35.6 H Vitamin B12 759 25-OH Vitamin D Total 30.4 L Folate 13.2 TSH 1.08 Ur Specific [place] 1.010 Urine Protein Negative Urine Glucose (UA) Negative Urine Blood Negative Urine Nitrite Negative Ur Leukocyte Esterase Negative Assessment and Plan Assessment & Plan (1) Rosacea: Code(s): L71.9 - Rosacea, unspecified Plan: Continue Metronidazole 0.75% topical gel QD PRN - Rx refilled, per request Follow up with [facility] as scheduled (2) Oral thrush: Code(s): B37.0 - Candidal stomatitis Plan: Will start him again on Nystatin S/S as instructed up to 5 times a day (3) Alcohol abuse: Code(s): F10.10 - Alcohol abuse, uncomplicated Plan: Have counseled patient again to at least try cutting back on his alcohol intake - patient appears to have been drinking to help alleviate some of his symptoms of anxiety and depression over the years Have advised him that the results of his labs done back in December 2022 have all come out mostly normal (4) Anxiety: Code(s): F41.9 - Anxiety disorder, unspecified Plan: Patient used to take Escitalopram in the past - will start him back on Escitalopram 10 mg QD It appears that he has been using alcohol (drinking) as well as smoking marijuana to help control or alleviate some of his symptoms of anxiety and depression over the years (5) Depression: Code(s): F32.A - Depression, unspecified Qualifiers: Depression Type: major depressive disorder Major depression recurrence: recurrent Active/Remission status: currently active Major depression episode severity: unspecified Qualified Code(s): F33.9 - Major depressive disorder, recurrent, unspecified Plan: Patient used to take Escitalopram and Mirtazapine in the past and he previously declined offer to start him back on Rx but is now agreeable to start back on something to help with his anxiety and depression Will start him on Escitalopram 10 mg QD He still declines offer to refer him to psychiatry - is again advised that he can call for referral at any time if he changes his mind about this (6) Smoker: Code(s): F17.200 - Nicotine dependence, unspecified, uncomplicated Plan: Counseled on smoking cessation, both for cigarettes and marijuana (7) Overweight (BMI 25.0-29.9): Code(s): E66.3 - Overweight Plan: Reinforced diet/exercise as tolerated/lose weight Plan To return as scheduled in December 2023 for his annual physical examination Medications: New escitalopram oxalate 10 mg PO DAILY 90 tabs 1RF 90 days nystatin swish 1/2 of dose in each side of the mouth for up to 5 minutes, then spit out the medicine 10 mL buccal TID 300 mL 0RF 10 days B37.0 - Candidal stomatitis Coding Level of Care Code Est Pt Level 4 (37025) Diagnoses Rosacea L71.9 Oral thrush B37.0 Alcohol abuse F10.10 Anxiety F41.9 Episode of recurrent major depressive disorder, unspecified depression episode severity F33.9 Depression Type: major depressive disorder Major depression recurrence: recurrent Active/Remission status: currently active Major depression episode severity: unspecified Smoker F17.200 Overweight (BMI 25.0-29.9) E66.3 Additional Codes YAHIR-7 Assessment Billing - YAHIR-7 Assessment Tool: YAHIR-7 Assessment 48845 ([id number])
== END 2023-07-09 09:52 | disposition home or self-care (01) ==
PROVIDERS: PCP Internal Medicine; Visit Provider Internal Medicine
DX: L71.9 Rosacea, unspecified (principal); F33.9 Major depressive disorder, recurrent, unspecified; B37.0 Candidal stomatitis; F10.10 Alcohol abuse, uncomplicated; F41.9 Anxiety disorder, unspecified; F17.210 Nicotine dependence, cigarettes, uncomplicated; E66.3 Overweight
CPT/HCPCS: 96127; 99214

== ENCOUNTER 2024-06-04 11:21 | Outpatient (AMB) | payer OTHER, SELFPAY ==
[2024-06-04 11:30] VITALS: BP 120/80; PULSE 70; O2SAT 96; BMI 21.6
--- NOTE | 2024-06-04 11:30 | MHC.PC.OV ---
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 Required: No Accompanied by: Self / Same As Patient Allergies No Known Allergies Allergy (Verified 06/04/24 11:40) Medication List - Last Reconciled 06/04/24 by Julio Poon MD escitalopram oxalate 10 mg PO DAILY 90 days metronidazole 0.75% 1 appl topical DAILY Tobacco use date assessed: 06/04/24 Dental Screening Dental Screen Date: 06/04/24 Did you have a dental visit in the last 12 months?: Yes Did you have a dental problem in the last 6 months where you did not have access to dental care?: No Was dental information given to patient?: Patient has dentist HPI RescheduleAnnualPE HPI Details Patient comes in today for his annual physical examination - was last seen in June 2023 Patient states that he feels okay Relates that he fell and reportedly sustained a hairline fracture on his right wrist a few weeks ago He went to [facility] and had x-rays done that revealed his injury States that he was referred to orthopedics and was seen at their facility over at [place] and he was advised to just immobilize his wrist for a period of time but no surgery was required States that he took off his wrist brace after some time as he found it too uncomfortable to wear Notes that his wrist feels okay at present with no pain; states that he has no limitations of his ROM at all He denies any headaches or dizziness Denies any chest pains, no SOB No nausea/vomiting, no abdominal pain No change in bowel habits noted He denies any acute urinary symptoms He had his screening colonoscopy done last year on 05/21/2023 - he had some polyps removed and at least one of them was a tubular adenoma and he was recommended to get repeat colonoscopy in 5 to 7 years [facility] Medical History (Updated 06/05/24 @ 04:52 by Juloi Poon MD) Alcohol use Smoker Rosacea Anxiety Depression Surgical History Hx of colonoscopy Hx of local excision of skin lesion Family History Mother No problems noted. Father Cancer Brother No problems noted. Brother No problems noted. Sister No problems noted. Daughter No problems noted. Daughter No problems noted. Other Mental health disorder Substance use disorder Social History Housing: Other (mobile home) Patient Tobacco Use Status: Current everyday Tobacco user Tobacco use type: Cigarette Cigarette Packs Per Day: 1 Cigarettes Per Day: 20 e-Cigarette/Vaping Use: Never Used Second Hand Smoke Exposure: Yes Substance Use Type: Marijuana service: No Current occupational status: employed Current occupational exposures/hazards: No Cognitive needs: No Hearing needs: No Vision needs: Yes Questionnaire PHQ-9 Over the last 2 weeks, how often have you been bothered by any of the following problems? 1. Little interest or pleasure in doing things: several days 2. Feeling down, depressed, or hopeless: several days 3. Trouble falling or staying asleep, or sleeping too much: nearly every day 4. Feeling tired or having little energy: nearly every day 5. Poor appetite or overeating: nearly every day 6. Feeling bad about yourself - or that you are a failure or have let yourself or your family down: several days 7. Trouble concentrating on things, such as reading the newspaper or watching television: not at all 8. Moving or speaking so slowly that other people could have noticed. Or the opposite - being so fidgety or restless that you have been moving around a lot more than usual: not at all 9. Thoughts that you would be better off or of hurting yourself in some way: not at all Total score: 12 Depression Screening Interpretation: Positive Depression Screening Follow-up: Existing condition and In treatment Depression Screening Done: Yes 55625 - PHQ-9 Billing: Yes Source: Developed by Drs. Rigo Villatoro, Sarita Bansal, Bubba Singh and colleagues, with an educational kurt from [email or web address]. Thrive Questionnaire Date Thrive assessed: 06/04/24 I am a: Patient What is your living situation today?: I have a steady place to live Within the past 12 months, did the food you bought not last and you didn't have the money to get more?: Never true Within the past 12 months, did you worry whether your food would run out before you got money to buy more?: Never true Do you have trouble paying for medicines?: No Do you have trouble getting transportation to medical appointments?: No Do you have trouble paying your heating and electricity bill?: No Do you have trouble taking care of your child, family member or friend?: No Do you have trouble with day-to-day activities such as bathing, preparing meals, shopping, managing finances, etc.?: No Are you currently unemployed and looking for a job?: No Are you interested in more education?: No Please select the resources that you would like help with: None Currently or been in a relationship where the following occur: No concerns reported THRIVE Score: 0 AUDIT C Alcohol Use Questionnaire (AUDIT-C) 1. How often do you have a drink containing alcohol?: 4 or more times a week 2. How many drinks containing alcohol do you have on a typical day when you are drinking?: 5 or 6 3. How often do you have six or more drinks on one occasion?: Daily or almost daily Total Score: 10 Score Reviewed/Action Taken: Yes YAHIR-7 AMB Questionnaire YAHIR-7 Date YAHIR - 7 assessed: 06/04/24 Feeling nervous, anxious, or on edge: 1 = Several days Not being able to stop or control worryin = Nearly every day Worrying too much about different things: 3 = Nearly every day Trouble relaxin = Several days Being so restless that it is hard to sit still: 0 = Not at all Becoming easily annoyed or irritable: 3 = Nearly every day Feeling afraid as if something awful might happen: 1 = Several days Total YAHIR-7 score (0-4 normal; 5-9 mild; 10-14 moderate; 15-21 severe): 12 Source: Developed by Drs. Rigo Villatoro, Sarita Bansal, Bubba Singh and colleagues, with an educational kurt from [employer]. YAHIR-7 Assessment Billing YAHIR-7 Assessment Tool: YAHIR-7 Assessment 38409 Review of Systems Const Denies chills, Denies fatigue, Denies fever(s), Denies headache(s), Denies malaise and Denies weakness Eyes Denies blurry vision, Denies change in vision, Denies irritation and Denies itchy eyes ENT Denies dysphagia, Denies dizziness, Denies otalgia, Denies headache(s), Denies nasal congestion, Denies neck pain, Denies odynophagia and Denies sore throat Card Denies chest pain, Denies rapid heart rate, Denies irregular heart rhythm, Denies palpitations and Denies dyspnea Resp Denies chest congestion, Denies cough, Denies dyspnea and Denies wheezing GI Denies abdominal pain, Denies bloating, Denies constipation, Denies dysphagia, Denies heartburn, Denies diarrhea, Denies nausea, Denies odynophagia and Denies vomiting Denies hematuria, Denies difficulty urinating, Denies dysuria, Denies urinary frequency and Denies urinary urgency Musc Denies back pain, Denies arthralgias, Denies joint swelling, Denies muscle weakness and Denies neck pain Skin/Breast Denies change in pigmentation, Denies lesions, Denies rash and Denies unusual bruising Neuro Denies dizziness, Denies headache(s), Denies paresthesias and Denies weakness Endo Denies fatigue and Denies palpitations Aller/Immun Denies itchy eyes and Denies wheezing Physical exam (Primary Care) Vital Signs: Last Vital Signs Pulse 70 06/04/24 11:30 BP 120/80 06/04/24 11:30 Pulse Ox 96 06/04/24 11:30 Oxygen Delivery Method Room Air 06/04/24 11:30 BMI result Body Mass Index 21.6 Tobacco/Smoking Status: Tobacco use Status Tobacco use date assessed 06/04/24 06/04/24 11:35 Patient Tobacco Use Status Current everyday Tobacco 06/04/24 11:35 Tobacco use type Cigarette 06/04/24 11:35 e-Cigarette/Vaping Use Never Used 06/04/24 11:35 PHQ-9: PHQ-9 Score PHQ-9: Total score 12 06/04/24 11:44 Depression Screening Interpretation: Positive Depression Screening Follow-up: Existing condition and In treatment Thrive Assessment: Date of Thrive Assessment Date Thrive assessed 06/04/24 06/04/24 11:35 Currently or been in a relationship where the following occur: No concerns reported Const General: no acute distress, alert and awake Orientation/consciousness: patient oriented x3 HENMT Head: Yes normocephalic and Yes atraumatic Ears: external ears normal, TM's normal bilaterally and EAC's normal General nose exam: No nasal discharge present Face and sinus: Yes normal facial exam and Yes sinuses nontender Teeth and gingiva: dentition normal Throat: Yes posterior oropharynx normal and Yes tonsils normal (no TP congestion) Eyes Eyelids: Yes eyelids normal Conjunctivae: conjunctivae normal Pupils: Equal, round and reactive pupils present EOM: EOMs intact bilaterally Neck Neck: Yes no lymphadenopathy and Yes supple Thyroid: Thyroid normal Resp Auscultation: clear to auscultation bilaterally, no rales and no wheezes Cardio Rate: regular rate Rhythm: regular rhythm Heart sounds: no murmurs GI Palpation (GI): Soft to palpation, nontender and No hepatosplenomegaly present Auscultation: normal bowel sounds General: Yes no CVA tenderness Back/Spine/Pelvis Back: no CVA tenderness Thoracic/Lumbar Spine: thoracic and lumbar spine normal to inspection Skin Lesions: no lesions Rashes: no rashes Neuro General: patient oriented x3, moves all extremities, no focal motor deficits and CN's II-XI intact bilaterally Cranial nerves: Yes Equal, round and reactive pupils present Cognition (Neuro): normal cognition Gait exam (Neuro): Normal gait present Extrem General: Yes no clubbing, cyanosis or edema Coding Level of Care Code Est Pt Prev Care 40-64y(18972) Diagnoses Annual physical exam Z00.00 Rosacea L71.9 Alcohol use F10.90 Anxiety F41.9 Episode of recurrent major depressive disorder, unspecified depression episode severity F33.9 Depression Type: major depressive disorder Major depression recurrence: recurrent Active/Remission status: currently active Major depression episode severity: unspecified Smoker F17.200 Additional Codes YAHIR-7 Assessment Billing - YAHIR-7 Assessment Tool: YAHIR-7 Assessment 22209 ([id number]) PHQ-9 - 33220 - PHQ-9 Billing: Yes ([id number]) Assessment & Plan Assessment & Plan (1) Annual physical exam: Code(s): Z00.00 - Encounter for general adult medical examination without abnormal findings Category: Medical Plan: Check labs He is up-to-date with his colon cancer screening He had his screening colonoscopy done last year on 05/21/2023 - reportedly had some polyps removed and at least one of them was a tubular adenoma and he was recommended to get repeat colonoscopy in 5 to 7 years (2) Rosacea: Code(s): L71.9 - Rosacea, unspecified Category: Medical Plan: Continue Metronidazole 0.75% topical gel QD PRN Follow up with [facility] as scheduled (3) Alcohol use: Code(s): F10.90 - Alcohol use, unspecified, uncomplicated Category: Social Hx Plan: Patient is counseled again on continuing to work on cutting back and ultimately quit drinking alcohol It appears that he has been using alcohol (drinking) as well as smoking marijuana to help control or alleviate some of his symptoms of anxiety and depression over the years (4) Anxiety: Code(s): F41.9 - Anxiety disorder, unspecified Category: Medical Plan: Continue Escitalopram 10 mg QD (5) Depression: Code(s): F32.A - Depression, unspecified Category: Medical Qualifiers: Depression Type: major depressive disorder Major depression recurrence: recurrent Active/Remission status: currently active Major depression episode severity: unspecified Qualified Code(s): F33.9 - Major depressive disorder, recurrent, unspecified Plan: Continue Escitalopram 10 mg QD He still declines offer to refer him to psychiatry - is again advised that he can call for referral at any time if he changes his mind about this (6) Smoker: Code(s): F17.200 - Nicotine dependence, unspecified, uncomplicated Category: Social Hx Plan: Patient is counseled on complete smoking cessation, both with cigarettes and marijuana Plan To return in 1 year for his next annual physical examination Orders: Orders Complete Blood Count Auto Diff 06/04/24 D64.9 - Anemia, unspecified, Z00.00 - Encounter for general adult medical examination without abnormal findings Prostate Specific Antigen 06/04/24 N40.0 - Benign prostatic hyperplasia without lower urinary tract symptoms, Z00.00 - Encounter for general adult medical examination without abnormal findings Complete Blood Count Auto Diff 1 Year D64.9 - Anemia, unspecified, Z00.00 - Encounter for general adult medical examination without abnormal findings Comprehensive [place]. Panel Fast 1 Year E78.00 - Pure hypercholesterolemia, unspecified, Z00.00 - Encounter for general adult medical examination without abnormal findings Lipid Panel 1 Year E78.00 - Pure hypercholesterolemia, unspecified, Z00.00 - Encounter for general adult medical examination without abnormal findings Lipid Panel 06/04/24 E78.00 - Pure hypercholesterolemia, unspecified, Z00.00 - Encounter for general adult medical examination without abnormal findings Comprehensive [place]. Panel Fast 06/04/24 E78.00 - Pure hypercholesterolemia, unspecified, Z00.00 - Encounter for general adult medical examination without abnormal findings TSH reflex Free T4 06/04/24 E78.00 - Pure hypercholesterolemia, unspecified, Z00.00 - Encounter for general adult medical examination without abnormal findings UA CC w/rflx Micro + Cult 06/04/24 R30.0 - Dysuria, Z00.00 - Encounter for general adult medical examination without abnormal findings Vitamin D 25-OH Total 06/04/24 E55.9 - Vitamin D deficiency, unspecified, Z00.00 - Encounter for general adult medical examination without abnormal findings Prostate Specific Antigen 1 Year N40.0 - Benign prostatic hyperplasia without lower urinary tract symptoms, Z00.00 - Encounter for general adult medical examination without abnormal findings Vitamin D 25-OH Total 1 Year E55.9 - Vitamin D deficiency, unspecified, Z00.00 - Encounter for general adult medical examination without abnormal findings UA CC w/rflx Micro + Cult 1 Year R30.0 - Dysuria, Z00.00 - Encounter for general adult medical examination without abnormal findings TSH reflex Free T4 1 Year E78.00 - Pure hypercholesterolemia, unspecified, Z00.00 - Encounter for general adult medical examination without abnormal findings
== END 2024-06-04 11:55 | disposition home or self-care (01) ==
LOC: HO.HMCH 11:21
PROVIDERS: PCP Internal Medicine; Visit Provider Internal Medicine
DX: Z00.00 Encounter for general adult medical examination without abnormal findings (principal); L71.9 Rosacea, unspecified; F33.9 Major depressive disorder, recurrent, unspecified; F10.90 Alcohol use, unspecified, uncomplicated; F41.9 Anxiety disorder, unspecified; F17.200 Nicotine dependence, unspecified, uncomplicated

== ENCOUNTER 2024-06-04 11:21 | Outpatient (REF) | payer OTHER, SELFPAY ==
[2024-06-04 12:26] LABS: MANUAL DIFF FLAG NO
[2024-06-04 13:35] LABS: Basophils Percent Auto 0.5 % (0-2); Eosinophils Absolute Auto 0.2 X10*3/uL (0.0-0.4); Eosinophils Percent Auto 2.2 % (0-4); Hematocrit 44.6 % (42.0-52.0); Hemoglobin 15.6 g/dl (14.0-18.0); Imm Gran Abs Auto 0.03 X10*3/uL (0.00-0.03); Imm Gran Pct Auto 0.3 % (0.0-0.4); Lymphocytes Absolute Auto 2.9 X10*3/uL (1.2-4.9); Lymphocytes Percent Auto 33.4 % (20-40); Mean Corpuscular Hemoglobin 35.4 pg (27.0-33.0); Mean Corpuscular Volume 101.1 fL (80.0-98.0); Mean Platelet Volume 9.6 fL (9.4-12.4); Monocytes Absolute Auto 0.7 X10*3/uL (0.1-1.2); Monocytes Percent Auto 8.2 % (2-11); Neutrophils Absolute Auto 4.8 x10*3/uL (2.0-8.3); Neutrophils Percent Auto 55.4 % (45-73); Platelet Count 263 X10*3/uL (160-400); Red Blood Count 4.41 X10*6/uL (4.60-5.80); Red Cell Distribution Width 13.2 % (11.0-16.0); White Blood Count 8.6 X10*3/uL (4.8-10.8)
[2024-06-04 13:55] LABS: Appearance Urine Clear; Color Urine Yellow; Glucose Urine UA Negative (Negative); Leukocyte Esterase Urine Negative (Negative); Nitrite Urine Negative (Negative); Specific Gravity - Urine <= 1.005 (1.005-1.025); Urine Blood Negative (Negative); Urine Ketones Negative (Negative); Urine Protein Negative (Neg-Trace)
[2024-06-04 14:04] LABS: Alanine Aminotransferase 24 U/L (0-40); Albumin Level 4.4 g/dL (3.5-5.0); Anion Gap 13 (12-20); Aspartate Amino Transferase 26 U/L (5-37); Bilirubin Total 0.3 mg/dL (0.0-1.0); Blood Urea Nitrogen 7 mg/dL (9-16); Calcium 9.3 mg/dL (8.4-10.2); Carbon Dioxide 27 mmol/L (22-29); Chloride 105 mmol/L (96-108); Cholesterol 149 mg/dL (<200); Estimated Glomerular Filt Rate > 60; Glucose Fasting 74 mg/dL (60-99); HDL Cholesterol 69 mg/dL (>40); LDL Cholesterol Calculated 68 mg/dL (<100); Sodium 141 mmol/L (135-145); Total Protein 7.3 g/dL (6.5-8.0); Triglycerides 63 mg/dL (<150)
[2024-06-04 14:09] LABS: Alkaline Phosphatase 105 U/L (39-117)
[2024-06-04 14:16] LABS: Prostate Specific Antigen 1.77 ng/mL (<0.05-4.0)
[2024-06-04 14:20] LABS: TSH reflex Free T4 1.65 uIU/mL (0.32-4.0); Vitamin D 25-OH Total 31.9 ng/mL (>30)
== END 2024-06-04 11:22 | disposition home or self-care (01) ==
LOC: HO.LAB 11:21
PROVIDERS: PCP Internal Medicine; Visit Provider Internal Medicine
DX: Z00.00 Encounter for general adult medical examination without abnormal findings (principal); L71.9 Rosacea, unspecified; F10.90 Alcohol use, unspecified, uncomplicated; F41.9 Anxiety disorder, unspecified; F33.9 Major depressive disorder, recurrent, unspecified; F17.210 Nicotine dependence, cigarettes, uncomplicated; Z79.899 Other long term (current) drug therapy; D64.9 Anemia, unspecified; N40.0 Benign prostatic hyperplasia without lower urinary tract symptoms; E78.00 Pure hypercholesterolemia, unspecified; R30.0 Dysuria; E55.9 Vitamin D deficiency, unspecified; Z12.5 Encounter for screening for malignant neoplasm of prostate
CPT/HCPCS: 36415; 80053; 80061; 81003; 82306; 84153; 84443; 85025; 96127